=== PATIENT | male | born 1945 | race Caucasian/White ===

== ENCOUNTER → 2019-05-21 | Outpatient (CLI) | payer OTHER ==
[~2019-05-21] MED LIST: ACETAMINOPHEN325 M1 PO; ASPIRIN325 PO; ATIVAN1 MG PO; AUGMENTIN 875875 MG PO; CELEXA20 MG PO; CLARITIN10 M2 PO; FAMOTIDINE20 MG PO; LIPITOR40 MG PO; MEDROLDOSEPACK PO; VENTOLIN HFA 1818 GM INH; XANAX 1 MG TABLE1 MG PO; ZPAK PO
== END ==
LOC: ULTRA 12:36
DX: R19.09 Other intra-abdominal and pelvic swelling, mass and lump (principal)